=== PATIENT | male | born 1990 | race Caucasian/White ===

== ENCOUNTER 2018-02-15 17:04 | Emergency (ER) | payer OTHER ==
[2018-02-15] MEDS: Diphtheria,Pertussis(Acell),Tetanus Vaccine 0.5 ML Syringe IM ONE (17:20)
--- NOTE | 2018-02-15 17:22 | EDM.PDOC ---
<Carly Newman - Last Filed: 02/15/18 17:28> ED HPI GENERAL MEDICAL PROBLEM - General Chief Complaint: Laceration Stated Complaint: laceration Time Seen by Provider: 02/15/18 17:05 Source of Information: Reports: Patient - History of Present Illness INITIAL COMMENTS - FREE TEXT/NARRATIVE: Patient was at work in [place], [place]. He was unloading a dump trailer and he slipped on some rock and lost his footing while the back tailgate of an end dump and was closing it smashed his left hand between 2 pieces of metal. Pt is having a pain of 2 currently. Controlled the bleeding prior to arrival with direct pressure. Pt is able to move hand but states it is tender to move and his middle finger with a laceration to the knuckle of the middle finger. Tetanus 6 years ago when he had stitches done on the same hand. Onset: Today, Sudden Quality: Reports: Ache, Throbbing Improves with: Reports: Immobilization Worsens with: Reports: Movement - Related Data Allergies Allergy/AdvReac Type Severity Reaction Status Date / Time No Known Allergies Allergy Verified 02/15/18 17:29 Home Meds: Home Meds . [No Known Home Meds] 02/15/18 [History] Review of Systems - Review of Systems Review Of Systems: See Below Constitutional: Reports: No Symptoms Eyes: Reports: No Symptoms Ears: Reports: No Symptoms Nose: Reports: No Symptoms Mouth/Throat: Reports: No Symptoms Respiratory: Reports: No Symptoms Cardiovascular: Reports: No Symptoms GI/Abdominal: Reports: No Symptoms Genitourinary: Reports: No Symptoms Musculoskeletal: Reports: No Symptoms Skin: Reports: No Symptoms Neurological: Reports: No Symptoms Psychiatric: Reports: No Symptoms ED EXAM, GENERAL - Physical Exam Exam: See Below Exam Limited By: No Limitations General Appearance: Alert, WD/WN, No Apparent Distress Respiratory/Chest: No Respiratory Distress, Lungs Clear Cardiovascular: Normal Peripheral Pulses, Regular Rate, Rhythm Peripheral Pulses: 2+: Carotid (L), Carotid (R), Radial (L), Radial (R) Back Exam: Normal Inspection, Full Range of Motion Extremities: Normal Inspection, Normal Range of Motion Neurological: Alert, Oriented, CN II-XII Intact Psychiatric: Normal Affect, Normal Mood Skin Exam: Warm, Dry, Intact, Normal Color, No Rash, Other (left hand injury. CMS intact. ROM intact. tender on palpation 2cm laceration on the knuckle, 1cm laceration to distal medial nail tip. nail bed and nail body intact) Course - Vital Signs Last Recorded V/S: Last Vital Signs Temp 35.5 C 02/15/18 17:30 Pulse 85 02/15/18 17:30 Resp 16 02/15/18 17:30 BP 138/90 02/15/18 17:30 Pulse Ox 97 02/15/18 17:30 - Orders/Labs/Meds Orders: Active Orders 24 hr Category Date Time Status Vaccines to be Administered [RC] PER UNIT ROUTINE Care 02/15/18 17:16 Active Hand Comp Min 3V Lt [CR] Stat Exams 02/15/18 17:19 Taken Meds: Medications Discontinued Medications Generic Name Dose Route Start Last Admin Trade Name Freq PRN Reason Stop Dose Admin Diphtheria/Tetanus/Acell Pertussis 0.5 ml 02/15/18 17:15 02/15/18 17:20 Adacel IM 02/15/18 17:16 0.5 ml .ONCE ONE Administration Lidocaine HCl 5 ml 02/15/18 17:15 02/15/18 17:20 Xylocaine-Mpf 1% INJECT 02/15/18 17:16 5 ml ONETIME ONE Administration Departure - Departure Disposition: Home, Self-Care 01 Clinical Impression: Encounter related to worker's compensation claim Crush injury of hand Qualifiers: Encounter type: initial encounter Laterality: left Qualified Code(s): S67.22XA - Crushing injury of left hand, initial encounter Hand laceration Qualifiers: Encounter type: initial encounter Foreign body presence: without foreign body Laterality: left Qualified Code(s): S61.412A - Laceration without foreign body of left hand, initial encounter - Discharge Information Instructions: Crush Injury of the Hand, Laceration Care, Adult, Sutured Wound Care Referrals: PCP,Not In Area [Primary Care Provider] - Forms: ED Department Discharge Additional Instructions: 1. Stay well hydrated and rest 2. Keep area covered 3. Keep sutures clean and dry 4. Sutures can be removed in 10 days 5. May shower/bathe as usual 6. See your Primary in 10 days for a recheck and possible suture removal 7. Call us with any questions/concerns - Assessment/Plan Assessment:: 1. Laceration 2. Crush injury to left hand Plan: 1. Xray of hand 2. Care of pt is transferred to [facility] richardson. <Kirby Richardson - Last Filed: 02/15/18 18:14> ED HPI GENERAL MEDICAL PROBLEM Right Hand Pain Score (Numeric/FACES): 2 ED TRAUMA EXTREMITY PROCEDURES - Laceration/Wound Repair Left Hand Lac/Wound Length In cm: 2 Appearance: Subcutaneous, Linear, Clean Distal NVT: Neuro & Vascular Intact, No Tendon Injury Anesthetic Type: Local Skin Prep: Chlorhexidine (Hibiciens), Saline Exploration/Debridement/Repair: Wound Explored, In a Bloodless Field, Explored to Base, No Foreign Material Found, Wound Margins Revised Closed With: Sutures Suture Size: 4-0 # of Sutures: 5 Suture Type: Nylon, Interrupted, Simple Sterile Dressing Applied: Nurse Tetanus Status Addressed: Yes Complications: No Progress/Comments: Dermabond applied to tip of 3rd digit for a small avulsion wound; unable to measure given wound orientation Course - Radiology Interpretation Free Text/Narrative:: Hand Left 3V: No acute process - see scanned report in EMR Departure - Departure Time of Disposition: 18:14 Condition: Good - Problem List Review Problem List Initiated/Reviewed/Updated: Yes
== END 2018-02-15 18:20 | disposition home or self-care (01) ==
LOC: VM.ED 17:04
DX: S67.22XA Crushing injury of left hand, initial encounter (principal); S61.412A Laceration without foreign body of left hand, initial encounter; Z23 Encounter for immunization; Y99.0 Civilian activity done for income or pay
CPT/HCPCS: 12001; 12032; 73130-LT; 90471; 90715; 99283